=== PATIENT | female | born 1960 | race American Indian/Alaskan Native ===

== ENCOUNTER 2017-06-19 22:35 | Inpatient (IN) | payer MEDICAID ==
[2017-06-19 23:13] LABS: BASO # 0.1 K/uL (0.0-0.2); BASO % 1.7 % (0.0-2.0); EOS % 1.4 % (0.0-4.0); HEMOGLOBIN 14.4 g/dL (11.0-16.0); LYMPH # 1.6 K/uL (1.0-4.3); LYMPH % 45.6 % (20.0-40.0); MEAN CELL VOLUME 95.7 fL (81.0-99.0); MEAN CORPUSCULAR HEMOGLOBIN 32.6 pg (27.0-31.0); MEAN PLATELET VOLUME 11.2 fL (7.2-11.7); MONO # 0.5 K/uL (0.0-0.8); MONO % 14.4 % (0.0-10.0); NEUT # 1.3 K/uL (1.8-7.0); NEUT % 36.9 % (50.0-75.0); NRBC % 0.1 % (0.0-2.0); RBC 4.41 Mil/uL (3.80-5.20); RED CELL DISTRIBUTION WIDTH 14.6 % (11.5-14.5); WHITE BLOOD COUNT 3.4 K/uL (4.8-10.8)
[2017-06-19 23:18] LABS: SQUAMOUS EPITHIAL < 1 /hpf (0-5); URINE BACTERIA RARE (<OCC); URINE BILIRUBIN NEGATIVE (NEGATIVE); URINE BLOOD NEGATIVE (NEGATIVE); URINE CLARITY Hazy (Clear); URINE COLOR Yellow (YELLOW); URINE GLUCOSE (UA) NORMAL (Normal); URINE LEUKOCYTE ESTERASE NEG Leu/uL (Negative); URINE PROTEIN 2+ mg/dL (NEGATIVE); URINE UROBILINOGEN NORMAL mg/dL (0.2-1.0)
[2017-06-19 23:25] LABS: ALB/GLOB RATIO 0.8 (1.0-2.1); CALCIUM 8.7 mg/dl (8.6-10.4)
[2017-06-19 23:30] LABS: BARBITURATES, UR NEGATIVE (NEGATIVE); BENZODIAZEPINES, UR NEGATIVE (NEGATIVE); PHENCYCLIDINE, UR NEGATIVE (NEGATIVE)
[2017-06-19 23:31] LABS: OPIATES, UR POSITIVE (NEGATIVE)
--- NOTE | 2017-06-19 23:39 | C.PDOC ---
History Of Present Illness 57 year old female presents to the ED c/o dependency on heroin. Patient states her last use of heroin was today at 19:00. Patient was previously prescreened for detox admission. Patient also admits to recent alcohol use earlier this evening. Patient denies other complaints. Chief Complaint (Nursing): Substance Abuse History Per: Patient History/Exam Limitations: no limitations Onset/Duration Of Symptoms: Days Current Symptoms Are (Timing): Still Present Suicide/Self Injury Attempted (Context): None Modifying Factor(s): Alcohol, Other (heroin) Associated Symptoms: denies: Depression, Suicidal Thoughts, Suicidal Plan Involuntary Hold By: None Recent travel outside of the [place]: No Additional History Per: Patient Past Medical History Reviewed: Historical Data, Nursing Documentation, Vital Signs Vital Signs: Last Vital Signs Temp 98.2 F 06/20/17 02:10 Pulse 88 06/20/17 02:10 Resp 20 06/20/17 02:10 BP 165/100 H 06/20/17 02:10 Pulse Ox 97 06/20/17 05:08 - Medical History PMH: HTN (missed 2 days of bp meds) Denies: Chronic Kidney Disease Surgical History: No Surg Hx Family History: States: Unknown Family Hx - Social History Hx Alcohol Use: Yes Hx Substance Use: Yes - Immunization History Hx Tetanus Toxoid Vaccination: No Hx Influenza Vaccination: No Hx Pneumococcal Vaccination: No Review Of Systems Constitutional: Negative for: Fever, Chills Cardiovascular: Negative for: Chest Pain Respiratory: Negative for: Cough, Shortness of Breath Gastrointestinal: Negative for: Nausea, Vomiting, Abdominal Pain Skin: Negative for: Rash Neurological: Negative for: Weakness, Numbness Physical Exam - Physical Exam Appears: Non-toxic, No Acute Distress, Other (flat affect) Skin: Normal Color, Warm, Dry Head: Atraumatic, Normacephalic Eye(s): bilateral: Normal Inspection Nose: No Discharge Oral Mucosa: Moist Neck: Normal ROM, Supple Chest: Symmetrical Cardiovascular: Rhythm Regular, No Murmur Respiratory: Normal Breath Sounds, No Rales, No Rhonchi, No Wheezing Gastrointestinal/Abdominal: Soft, No Tenderness, No Guarding, No Rebound Extremity: Normal ROM, No Tenderness, No Swelling Neurological/Psych: Oriented x3 Gait: Steady ED Course And Treatment - Laboratory Results Result Diagrams: 06/19/17 23:10 06/19/17 23:10 O2 Sat by Pulse Oximetry: 97 (On RA) Pulse Ox Interpretation: Normal Medical Decision Making Medical Decision Making: Impression: heroin detox Plan: * Labs * UA * Crisis evaluation Disposition - Disposition Disposition: HOSPITALIZED Disposition Time: 05:09 Condition: FAIR - Clinical Impression Clinical Impression: Drug dependence - Scribe Statement The provider has reviewed the documentation as recorded by the Scribe Rolan Abdi All medical record entries made by the Scribe were at my direction and personally dictated by me. I have reviewed the chart and agree that the record accurately reflects my personal performance of the history, physical exam, medical decision making, and the department course for this patient. I have also personally directed, reviewed, and agree with the discharge instructions and disposition.
--- NOTE | 2017-06-20 03:42 | PCM.BM ---
Treatment Plan Problems - Problems identified on initial assessmt Etoh Dependence Date Initiated: 06/20/17 Time Initiated: :38 Assessment reference: NA Status: Active Opiate Dependence Date Initiated: 06/20/17 Time Initiated: :38 Assessment reference: NA Status: Active Treatment assets and liabiliti Patient Assests: ADL independent Patient Liabilities: substance abuse - Milieu Protocol Maintain good personal hygiene: daily Encourage regular showers, daily Remind patient to perform daily oral care, daily Assist patient to perform ADL's Maintain personal safety: every shift Educate patient to report safety concerns to staff, every shift Monitor environment for contraband/sharps Medication safety: Monitor for expected outcome, potential side effects: every shift, Assess barriers to learning: every shift, Assess readiness for medication education: every shift
--- NOTE | 2017-06-20 10:21 | PCM.PSYCH ---
Initial Psychiatric Evaluation - Initial Psychiatric Evaluation Type of Admission: Voluntary Legal Status: Capacity Chief Complaint (in patient's own words): "I need to stay clean" History of Present Illness and Precipitating Events: This is a 57 yo AAF with the PMH of HTN admitted for heroin detox. Pt reported that she start sniffing heroin at the age of 16/17. She had one detox 10 years ago. Pt stated that she is using 10 bags of heroin on daily basis. her last use was yesterday. She reported opioid withdrawal symptoms including nausea, vomiting, 2 episode of diarrhea, stomach cramps, hot and cold sweats, etc. Pt reported that she tried methadone 10 mg once 2 days ago. She reported methadone relieved her withdrawal symptoms. Pt reported that she drinks etoh 1/2 pint vodka 3 times a week. However, she denied etoh withdrawal symptoms, including sz, AH, VH, blackouts, and DTs. Pt reported that she start using cocaine at the age of 15/17. She use 1 gm / day. She denied any withdrawal symptoms, including craving. Pt reported that she smokes cigarettes 1/2 ppd. She denied withdrawal symptoms. She reported she has depressed mood. However, she denied other depressive symptoms, including SI, HI, intent or plan, worthlessness, helplessness, or hopelessness. She denied manic or anxiety symptoms. PPHx: denied any inpatient psychiatric admission She had only one detox in the past Social History: she is single, has 2 adult children. Lives with her sister. 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 Legal history: denied PMH: hypertension FH: none reported Current Medications: Active Medications Generic Name Dose Route Start Last Admin Trade Name Freq PRN Reason Stop Dose Admin Chlordiazepoxide 25 mg 06/20/17 06:00 06/20/17 06:56 Librium PO 06/25/17 05:59 Not Given Q6 BEN Taper Clonidine HCl 0.1 mg 06/20/17 01:21 06/20/17 02:19 Catapres PO 0.1 mg Q8 PRN Administration COWS Score More or Equal to 5 Hydroxyzine HCl 25 mg 06/20/17 01:22 Atarax PO Q6 PRN Anxiety Ibuprofen 600 mg 06/20/17 01:22 Motrin Tab PO TID PRN Pain, moderate (4-7) Loperamide HCl 2 mg 06/20/17 01:21 Imodium PO Q8 PRN Diarrhea Methadone HCl 0 mg 06/20/17 10:30 Methadone PO 06/24/17 10:29 DAILY BEN Taper Ondansetron HCl 4 mg 06/20/17 01:21 Zofran Tab PO Q8 PRN Nausea/Vomiting Past Psychiatric History - Past Psychiatric History Previous Treatment History: None Prior Psychiatric Treatment: please see HPI History of Abuse: denied History of ETOH/Drug Use: please see HPI Pertinent Medical Hx (Current Medical&Sleep Prob, Allergies): Allergies Allergy/AdvReac Type Severity Reaction Status Date / Time No Known Allergies Allergy Verified 06/19/17 22:46 amLODIPine [Norvasc] 10 mg PO DAILY 06/19/17 Review of Systems - Review of Systems All systems: reviewed and no additional remarkable complaints except (HPI) - Constitutional Constitutional: Sweats - EENT Eyes: UNREMARKABLE Ears: UNREMARKABLE Nose/Mouth/Throat: Nasal Discharge - Breasts Breasts: UNREMARKABLE - Cardiovascular Cardiovascular: UNREMARKABLE - Respiratory Respiratory: UNREMARKABLE - Gastrointestinal Gastrointestinal: Cramping, Diarrhea, Heartburn - Genitourinary Genitourinary: UNREMARKABLE - Reproductive: Female Reproductive:Female: UNREMARKABLE - Menstruation Menstruation: UNREMARKABLE - Musculoskeletal Musculoskeletal: Muscle Cramps - Integumentary Integumentary: UNREMARKABLE - Neurological Neurological: UNREMARKABLE - Psychiatric Psychiatric: As Per HPI - Endocrine Endocrine: UNREMARKABLE - Hematologic/Lymphatic Hematologic: UNREMARKABLE Mental Status Examination - Personal Presentation Personal Presentation: Looks younger than stated age, Dressed appropriate to season Additional comments: She appeared calm and cooperative - Affect Affect: Constricted - Motor Activity Motor Activity: Calm - Reliability in Providing Information Reliability in Providing Information: Good - Speech Speech: Organized - Mood Mood: Neutral - Formal Thought Process Formal Thought Process: No Impairment - Hallucinations/Delusions Hallucinations: Other (denied) Delusions: Other (denied) - Obsessions/Compulsions Obsessions: None Compulsions: None - Cognitive Functions Orientation: Person, Place, Situation, Time Sensorium: Alert Attention/Concentration: Attentive Abstract Thinking: [place] Estimate of Intelligence: Average Judgement: Intact, as evidence by: Good judgement, Intact, as evidence by: Insight regarding need for hospitalization Memory: Recent intact, as evidence by: Ability to recall events of the day - Risk Risk: Withdrawal - Strength & Assets Inventory Strength & Assets Inventory: Intelligence, Education, Employment history, Skills - Limitations Limitations: Other (chronic drug use) DSM 5 DX - DSM 5 DSM 5 Diagnosis: Opioid use d/o, dependence, severe, withdrawal symptoms. cocaine use disorder alcohol use disorder - Recommended/Plan of Treatment Treatment Recommendations and Plan of Treatment: Librium and methadone detox Gabapentin for augmentation As needed meds and vitamins Attend groups and activities [place] for abstinence and CBT for relapse prevention Support and psychoeducation Consider and encourage MAT Refer to after care 33 min Projected ELOS: 4-5 days Prognosis: good with medication compliance Discharge Plan and Discharge Criteria: refer to discharge plan - Smoking Cessation Smoking Cessation Initiated: Yes
--- NOTE | 2017-06-21 17:06 | PCM.PYCHPN ---
Psychiatric Progress Note - Psychiatric Progress Note Patient seen today, length of contact: 15 minutes Patient Chief Complaint: "I'm okay" Problems Identified/Issues Discussed: The pt is seen, chart reviewed, case discussed with staff. Support given, CBT and VT used briefly No new symptoms reported, improving slowly and needs more time No SEs from medications, risks discussed. After care discussed Mental Status Examination - Cognitive Function Orientation: Person, Place, Situation, Time Memory: Intact Attention: WNL Concentration: Poor Association: WNL Fund of Knowledge: WNL Decription of patient's judgement and insights: Good - Mood Mood: Neutral - Affect Affect: Constricted - Formal Thought Process Formal Thought Process: No Impairment Psychotic Thoughts and Behaviors: None - Homicidal Ideation Homicidal Ideation: No Goal/Treatment Plan - Goal/Treatment Plan Need for Continued Stay: Discharge may exacerbated symptoms, Severe functional impairment Progress Toward Problem(s) and Goals/Treatment Plan: Continue medications Support and psychoeducation daily Attend groups and activities daily After care planning by TERRANCE
--- NOTE | 2017-06-22 20:43 | PCM.PYCHPN ---
Psychiatric Progress Note - Psychiatric Progress Note Patient seen today, length of contact: 15 minutes Patient Chief Complaint: I am feeling better. Problems Identified/Issues Discussed: Patient seen, chart reviewed, case discussed with the staff. Issues related to illness and treatment were discussed with the patient and staff. Reported compliant with treatment with no adverse effects. Feeling better. Mood reported as good. Affect appropriate. Becoming better, needs more time for stabilization. Awake alert oriented 3. Denied any delusions, no auditory or obvious hallucinations, no suicidal ideations or homicidal ideations at the time of evaluation. Medical Problems: Hypertension Diagnostic Results: Reviewed DSM 5 Symptoms Update: Improving with treatment Medication Change: Yes (Started Norvasc 10 mg) Medical Record Reviewed: Yes Mental Status Examination - Cognitive Function Orientation: Person, Place, Situation, Time Memory: Intact Attention: WNL Concentration: WNL Association: [facility] Fund of Knowledge: [facility] Decription of patient's judgement and insights: Fair - Mood Mood: Depressed (Much less than before) - Affect Affect: Other (Appropriate) - Speech Speech: Appropriate - Formal Thought Process Formal Thought Process: No Impairment Psychotic Thoughts and Behaviors: None - Suicidal Ideation Suicidal Ideation: No - Homicidal Ideation Homicidal Ideation: No Goal/Treatment Plan - Goal/Treatment Plan Need for Continued Stay: Remain at risks for inpatient hospitalization, Discharge may exacerbated symptoms, Severe functional impairment Progress Toward Problem(s) and Goals/Treatment Plan: Patient education Supportive therapy CBT for relapse prevention [place] for abstinence Continue treatment as before Patient will go to [facility] for follow-up care after discharge from the hospital. Estimated Date of D/C: 06/24/17 - Smoking Cessation Smoking Cessation Initiated: Yes
--- NOTE | 2017-06-23 18:37 | PCM.PYCHPN ---
Psychiatric Progress Note - Psychiatric Progress Note Patient seen today, length of contact: 15 minutes Patient Chief Complaint: I am feeling much better Problems Identified/Issues Discussed: Patient seen, chart reviewed, case discussed with the staff. Issues related to illness and treatment were discussed with the patient and staff. Reported compliant with treatment with no adverse effects. Feeling better. Mood reported as anxious. Affect appropriate. Becoming better, needs more time for stabilization. Awake alert oriented 3. Denied any delusions, no auditory or obvious hallucinations, no suicidal ideations or homicidal ideations at the time of evaluation. Medical Problems: Hypertension Diagnostic Results: Reviewed DSM 5 Symptoms Update: Improving with Medication Change: No Medical Record Reviewed: Yes Mental Status Examination - Cognitive Function Orientation: Person, Place, Situation, Time Memory: Intact Attention: WNL Concentration: WNL Association: WNL Fund of Knowledge: [facility] Decription of patient's judgement and insights: Fair - Mood Mood: Neutral - Affect Affect: Other (Appropriate) - Speech Speech: Appropriate - Formal Thought Process Formal Thought Process: No Impairment Psychotic Thoughts and Behaviors: None - Suicidal Ideation Suicidal Ideation: No - Homicidal Ideation Homicidal Ideation: No Goal/Treatment Plan - Goal/Treatment Plan Need for Continued Stay: Remain at risks for inpatient hospitalization, Discharge may exacerbated symptoms, Severe functional impairment Progress Toward Problem(s) and Goals/Treatment Plan: Patient education Supportive therapy CBT for relapse prevention [place] for abstinence Continue treatment as before Patient will go to [facility] for follow-up care after discharge from the hospital. Estimated Date of D/C: 06/24/17 - Smoking Cessation Smoking Cessation Initiated: Yes
[2017-06-24 06:39] VITALS: O2SAT 99
[2017-06-24 11:02] VITALS: BP 160/89; PULSE 62; RESP 20; TEMP 97.7
--- NOTE | 2017-06-24 22:28 | PCM.PYCHDC ---
Mental Status Examination - Mental Status Examination Orientation: Person, Place, Situation, Time Memory: Intact Mood: Neutral Affect: Other (Appropriate) Speech: Appropriate Attention: WNL Concentration: WNL Association: WNL Fund of Knowledge: WNL Formal Thought Process: No Impairment Description of patient's judgement and insight: Fair Psychotic Thoughts and Behaviors: None Suicidal Ideation: No Current Homicidal Ideation?: No Discharge Summary - Discharge Note Reason for Hospitalization: Opioid use Cocaine use Alcohol use Laboratory Data: Reviewed Consultations:: List each consultation separately and include: 1. Reason for request. 2. Findings. 3. Follow-up Summary of Hospital Course include:: 1. Description of specific treatment plan utilized for patients during their course of treatmen. 2. Summarize the time- course for resolution of acute symptoms and/or regressed behaviors. 3. Describe issues identified and worked on during hospitalization. 4. Describe medication utilized. 5. Describe medical problems identified and treated. 6. Reassessment of suicide risk Summary of Hospital Course: This is a 57 yo AAF with the PMH of HTN admitted for heroin detox. Pt reported that she start sniffing heroin at the age of [age]. She had one detox 10 years ago. Pt stated that she is using 10 bags of heroin on daily basis. her last use was yesterday. She reported opioid withdrawal symptoms including nausea, vomiting, 2 episode of diarrhea, stomach cramps, hot and cold sweats, etc. Pt reported that she tried methadone 10 mg once 2 days ago. She reported methadone relieved her withdrawal symptoms. Pt reported that she drinks etoh 1/2 pint vodka 3 times a week. However, she denied etoh withdrawal symptoms, including sz, AH, VH, blackouts, and DTs. Pt reported that she start using cocaine at the age of [age]. She use 1 gm / day. She denied any withdrawal symptoms, including craving. Pt reported that she smokes cigarettes 1/2 ppd. She denied withdrawal symptoms. She reported she has depressed mood. However, she denied other depressive symptoms, including SI, HI, intent or plan, worthlessness, helplessness, or hopelessness. She denied manic or anxiety symptoms. PPHx: denied any inpatient psychiatric admission She had only one detox in the past Social History: she is single, has 2 adult children. Lives with her sister. 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 Legal history: denied During her stay in the hospital patient was treated with methadone, Librium and other as needed medications. Patient started becoming better slowly. Patient was attending groups and others activities on the unit. With above treatment patient started feeling better and was ready for discharge. At the time of evaluation and discharge, patient was awake alert oriented 3, no delusions, no auditory or visual hallucinations, no suicidal ideations or homicidal ideations. Patient was discharged in stable condition. - Final Diagnosis (DSM 5) Condition upon Discharge: STABLE Disposition: HOME/ ROUTINE Follow-up Treatment Plan: [facility]. Prescriptions/Medication Reconciliation: amLODIPine [Norvasc] 10 mg PO DAILY #30 tab traZODone [Desyrel] 50 mg PO HS #30 tab - Smoking Cessation Smoking Cessation Medication prescribed: No - Antipsychotic Medications Pt discharged on 2 or more routine antipsychotic medications: No
== END 2017-06-24 10:30 | disposition home or self-care (01) | DRG 895 ==
LOC: C.ER 22:35 → C.7D 06-20 01:00
PROVIDERS: ADMIT Psychiatry & Neurology Psychiatry; ATTEND Psychiatry & Neurology Psychiatry
PROC: HZ2ZZZZ Detoxification Services for Substance Abuse Treatment (ICD-10-PCS; principal; 2017-06-20)
PROC: HZ52ZZZ Individual Psychotherapy for Substance Abuse Treatment, Cognitive-Behavioral (ICD-10-PCS; 2017-06-20)
PROC: HZ93ZZZ Pharmacotherapy for Substance Abuse Treatment, Antabuse (ICD-10-PCS; 2017-06-20)
PROC: HZ59ZZZ Individual Psychotherapy for Substance Abuse Treatment, Supportive (ICD-10-PCS; 2017-06-20)
DX: F11.23 Opioid dependence with withdrawal (principal); F10.10 Alcohol abuse, uncomplicated; F14.10 Cocaine abuse, uncomplicated; F17.210 Nicotine dependence, cigarettes, uncomplicated; F32.9 Major depressive disorder, single episode, unspecified; I10 Essential (primary) hypertension